=== PATIENT | female | born 1990 | race Caucasian/White ===

== ENCOUNTER 2022-02-17 08:00 | Outpatient (CLI) | payer OTHER ==
--- NOTE | 2022-02-17 16:25 | XRAY Report ---
PROCEDURE: Ankle 3 View LT INDICATIONS: ANKLE ORIF TECHNIQUE: 3 views of the ankle were acquired. COMPARISON: 01/11/2022 and 12/31/2021 FINDINGS: Bones: Postsurgical changes compatible with ORIF of left medial malleolar, posterior malleolus are ag ain left fibular fractures are stable. Anatomic alignment of fracture fragments has been maintained. Soft tissues: No tibiotalar joint effusion. Achilles tendon appears normal. IMPRESSION: Expected postsurgical change from ORIF of left ankle fractures. Reviewed by: Stella Arnold MD, PhD on 02/17/2022 4:24 PM PDT Approved by: Stella Arnold MD, PhD on 02/17/2022 4:24 PM PDT Station ID: [id number]
== END 2022-02-17 23:59 | disposition home or self-care (01) ==
LOC: DI.WOS 08:00
PROVIDERS: ATTEND Physician Assistant
DX: M25.572 Pain in left ankle and joints of left foot (principal)

== ENCOUNTER 2022-07-24 12:02 | Outpatient (CLI) | payer OTHER | END 2022-07-24 12:03 | disposition home or self-care (01) | LOC: LAB.R 12:02 | DX: T81.89XA Other complications of procedures, not elsewhere classified, initial encounter (principal); S82.852S Displaced trimalleolar fracture of left lower leg, sequela | CPT/HCPCS: 87070; 87075; 87186 ==

== ENCOUNTER 2022-07-24 16:57 | Outpatient (CLI) | payer OTHER ==
--- NOTE | 2022-07-24 14:52 | XRAY Report ---
PROCEDURE: Ankle 3 View LT INDICATIONS: LEFT ANKLE ORIF TECHNIQUE: 3 views of the ankle were acquired. COMPARISON: X-ray ankle 08/26/2021 FINDINGS: Bones: Distal fibular as well as medial and posterior malleolar fusion is present. Hardware is intact . There is stable alignment. Arthritic changes are noted at the tibiotalar joint space. Ankle mortise is normally aligned. No suspicious bony lesions. Soft tissues: No tibiotalar joint effusion. Achilles tendon appears normal. 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 Reviewed by: Rosalina Landon MD on 07/24/2022 2:51 PM PST Approved by: Rosalina Landon MD on 07/24/2022 2:51 PM PST Station ID: [id number]
== END 2022-07-24 16:58 | disposition home or self-care (01) ==
LOC: DI.WOS 16:57
PROVIDERS: ATTEND Physician Assistant Surgical
DX: M19.072 Primary osteoarthritis, left ankle and foot (principal)

== ENCOUNTER 2022-11-27 15:22 | Outpatient (CLI) | payer OTHER ==
[2022-11-27 16:14] VITALS: BP 124/68
--- NOTE | 2022-11-27 16:14 | SLEEP CARE CONSULTATION ---
Information from patient questionnaire entered by Madie Gallardo. I have reviewed and concur with the information entered by Madie Gallardo. This document represents the service I personally performed and the decisions made by me, Iram Jacobsen MD, [facility]. History of Present Illness Service Date and Time: 11/27/2022 1522 Reason for Visit: New patient Date of Onset: 3YRS Usual bedtime: 11PM Time it takes to fall asleep: 20MIN Snores at night: Yes Observed to quit breathing while asleep: Yes Sleeps alone due to snoring: Yes Number of times waking at night: 4 Reasons for waking at night: reports: Snoring Toss, Turn, or Twitch while sleeping: Yes Recalls having dreams: Yes Usually gets out of bed at: 630AM Feels refreshed in the morning: No Morning headache: Yes (830AM) Sleepy or fatigued during the day: Yes Ever fallen asleep while driving: No Takes day naps: Yes Dreams during day naps: Yes Prior sleep studies: No Additional HPI information: I have the pleasure of seeing Ms. Campos today regarding the possibility of her having obstructive sleep apnea. As you know, she is a 32-year-old lady who complains of loud snore, and her has seen her quit breathing in her sleep. The patient tells me that she normally goes to bed around 11 pm, and it takes her approximately 20 minutes to fall asleep. Her has to sleep in a separate room because of her snore. She can recall waking up on the average of 4 times during the night. Most of the time she wakes up because of her own snore. She occasionally wakes up choking. There is a lot of tossing and turning in her sleep. She has somniloquy (sleep talking) but not somnambulism (sleep walking). Generally, she can recall having dreams. In the morning she usually gets up out of the bed around 6:30 a.m. not feeling refreshed nor reste d. She usually does have a morning headache that lasts 1 2 hours. During the day she complains of feeling sleepy and fatigued. Her score on [place] Sleepiness Scale is 14 out of 24. She never has fallen asleep while driving nor has had any accident due to sleepiness. She usually takes naps during the day. Upon falling asleep during the day she admits to having vivid dreams. She has never had sleep paralysis. She denies having impaired concentration during the day. 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 Patient is and lives in . Have you smoked in the past 12 months: No Alcohol use: No Caffeine use: Yes Caffeine amount and frequency: CAN COKE DAILY Family History Family history of sleep disordered breathing: Yes Family Hx Sleep Apnea: Mother: Snoring, Sleep apnea - Treated, Father: Snoring, Sleep apnea - Treated, Sibling: Snoring, Sleep apnea - Treated Allergies and Home Medications Known drug allergies: No Drug allergies reviewed: Yes Home medication list reviewed: Yes (Wellbutrin) Review of Systems Cardiovascular: denies: high blood pressure, palpitations, chest pain, irregular heart rate or pulse, leg or foot swelling, have to sleep sitting up, other Respiratory: denies: shortness of breath, wheeze, sputum production, chronic cough, other Gastrointestinal: denies: heartburn, difficulty swallowing, nausea, vomitting, diarrhea, abdominal pain, other Urinary: denies: incontinence, frequency, urgency, impotence, other Neurological: denies: headaches, seizure, head trauma, disorientation, speech dysfunction, gait or balance problems, fainting or unconsciousness, other Psychiatric: reports: depression Ear/Nose/Throat: denies: nasal congestion, sinus problems, nose bleeds, dry mouth/throat, hoarseness, injury to nose, tonsillectomy, wisdom teeth removed, other Endocrine: denies: thyroid disease, history of goiter, sluggishness, too hot or cold, excessive thirst, increased appetite, increased urination, unexplained weakness, other Musculoskeletal: reports: joint pain, back pain, muscle pain or cramping, mobility problems Immunologic: denies: sneezing, rash, itching, allergies to food or environment, other Physical Exam Vital signs obtained and entered by: MADIE Lofton MA Blood Pressure: 124/68 (LEFT ARM) Cuff size: regular Heart Rate: 88 O2 Saturation: 96 Height: 5 ft 4 in Weight: 258 lb 6.4 oz Body Mass Index: 44.3 BMI Classification: Morbidly Obese Neck circumference: 15 Mood/affect: Normal HEENT: No craniofacial malformation Nostrils: partially obstructed (right) Turbinates: normal Septum: midline Mouth and throat: narrow oropharynx Soft palate: long Hard palate: normal Uvula: normal Uvula visualization: 25% Mallampati Class III Tongue: normal in size Tonsils: small Chin and jaw: normal size and position Neck: normal w/o lymphadenopathy or thyromegaly Heart: regular rate and rhythm Lungs: clear bilaterally Extremities: no edema or clubbing Neurologic: intact Impression and Plan IMPRESSION: 1. Obstructive Sleep Apnea-Hypopnea Syndrome, as evident by history of loud and irregular snoring, observed cessation of breath while asleep, frequent awakenings during the night, nocturnal choking, unrefreshed sleep, morning headache, and daytime hypersomnolence. Narrow oropharynx and obesity are common predisposing factors for obstructive sleep apnea-hypopnea syndrome. I recommend proceeding to polysomnography to confirm the diagnosis and to assess severity. If she has significant sleep disordered breathing, a manual CPAP titration study will also be performed to find the optimal treatment pressure. I informed the patient of what the sleep studies involve and after some discussion, she agreed to proceed. Plan: 1. Schedule an in-laboratory polysomnography and return in 1 to 2 weeks after the study to discuss result and initiate therapy. 2. Avoid long distance driving or when feeling sleepy. 3. Avoid alcohol, sedative and muscle relaxant around bedtime. 4. Attempt to lose weight. Counseling Topics: Weight control Follow up with Sleep Care in: 1-2 months Visit Type: In Office Time Spent with Patient (minutes): 15 Provider Statement: I spent 100% of the Face to Face Visit with the patient with greater than 50% spent counseling the patient and coordination of care.
== END 2022-11-27 15:23 | disposition home or self-care (01) ==
LOC: SC 15:22
PROVIDERS: ATTEND Internal Medicine Pulmonary Disease
DX: R06.83 Snoring (principal); G47.8 Other sleep disorders; R06.81 Apnea, not elsewhere classified; G47.50 Parasomnia, unspecified; R51.9 Headache, unspecified; G47.10 Hypersomnia, unspecified; F32.A Depression, unspecified; E66.01 Morbid (severe) obesity due to excess calories; Z68.41 Body mass index [BMI] 40.0-44.9, adult
CPT/HCPCS: 99202; 99212

== ENCOUNTER 2022-11-29 20:44 | Outpatient (CLI) | payer OTHER | END 2022-11-29 20:45 | disposition home or self-care (01) | LOC: SC 20:44 | PROVIDERS: ATTEND Internal Medicine Pulmonary Disease | DX: G47.33 Obstructive sleep apnea (adult) (pediatric) (principal); E66.01 Morbid (severe) obesity due to excess calories; Z68.41 Body mass index [BMI] 40.0-44.9, adult | CPT/HCPCS: 95810 ==

== ENCOUNTER 2023-01-12 09:38 | Outpatient (CLI) | payer OTHER ==
--- NOTE | 2023-01-12 09:35 | SLEEP CARE CONSULTATION ---
Information from patient questionnaire entered by Marsha Gallardo. I have reviewed and concur with the information entered by Marsha Gallardo. This document represents the service I personally performed and the decisions made by , Damaris Lujan ARNP. History of Present Illness Service Date and Time: 01/12/2023 0940 Initial [place] Sleepiness Scale score: 13 (11/27/22) Current [place] Sleepiness Scale score: 17 (01/12/23) Additional HPI information: BRIGITTE VALERO returns via video telehealth visit for follow up and results of the recently performed polysomnography. I explained the pathophysiology behind obstructive sleep apnea. We then spent quite a bit of time discussing different treatment options. For mild obstructive sleep apnea, surgery and oral appliance are alternatives to nasal CPAP therapy but in moderate or severe cases, nasal CPAP is the most effective and reliable treatment. I reviewed the impact of weight changes on sleep apnea and strongly recommended losing weight. After some discussion, the patient opted to go with the nasal CPAP therapy. Nasal autoCPAP set at 4-15 cmH20 will be ordered with rationale explained. A manual titration study will be ordered if unable to find optimal pressure with office adjustments. I explained how CPAP machine works and what to expect when using the machine. Using CPAP every night in order to get used to it was emphasized. Patient advised to put CPAP mask on before getting into bed so as not to fall asleep without CPAP. To assist acclimation to CPAP use, it could also be used for a short time during day while reading or watching TV. The patient was instructed to call the CPAP supplier to discuss any mechanical problem that may occur. If the mask given is uncomfortable or is difficult to keep on through the night even with adjustment, contact the CPAP supplier as many will replace with another mask style if notified before 30 days. If snoring or perceives is not getting enough air or too much air from the machine, notify this office. Patient does not drink alcohol. Patient was cautioned about risks of drowsy driving until sleepiness symptoms resolve. Patient denies drowsy driving. Sleep Study - Results Type of Sleep Study: Polysomnography (COMPLETED 11/29/22) Prior sleep studies: No Polysomnography/Home Sleep Study results: IMPRESSION: The quality of the study is good. The patient had normal sleep efficiency. The sleep architecture was abnormal for sleep fragmentation and reduced amount of time spent in REM sleep. Respiratory monitoring showed mild obstructive sleep apnea-hypopnea (AHI = 13.1) associated with frequent arousals, oxyhemoglobin desaturation and mild hypoxia (candis oxygen saturation of 85%). The respiratory events occurred predominantly during supine sleep (supine AHI = 15.7; non-supine = 9.85). Snore was very loud in intensity. There was no significant periodic leg movement of sleep. Cardiac rhythm was normal sinus rhythm without significant arrhythmia. No abnormal behavior (parasomnia) observed during the night. Allergies and Home Medications Known drug allergies: No Drug allergies reviewed: Yes Home medication list reviewed: Yes (no changes) Review of Systems Review of systems same as previous: Yes (no changes) Physical Exam Vital signs obtained and entered by: MARSHA Lofton MA Blood Pressure: 180/20 (PER PT) Height: 5 ft 4 in (PER PT) Weight: 250 lb (PER PT) Body Mass Index: 42.9 BMI Classification: Morbidly Obese Impression and Plan 1. Obstructive Sleep Apnea-Hypopnea Syndrome, mild, with lowest oxygen saturation of 85%. Obviously this is the cause of the patients symptoms of unrefreshed sleep, and excessive daytime sleepiness. Positive pressure therapy could benefit depression. As mentioned above, the patient will be started on nasal autoCPAP therapy with pressure set at 4-15 cmH2O. A manual titration study will be completed if unable to find optimal treatment pressure with office adjustments. Compliance guidelines also reviewed. A copy of compliance guidelines will be given for reference at check out. Because the apnea is more severe supine, I instructed to avoid sleeping supine using pillow positioning until able to start CPAP use. 2. Hypoxemia, mild, with a candis oxygen saturation of 85% and 1.6 minutes spent under 90%. Her baseline oxygen saturation was normal with an average oxygen saturation of 94%. * Nasal auto CPAP therapy, pressure at 4-15 cm H2O. * Attempt to lose weight. * Avoid alcohol consumption near bedtime. * Avoid supine sleep until using CPAP. * The patient is again cautioned about driving until sleepiness completely resolves. * Return one month after CPAP obtained. I will assess response to therapy and compliance at that time. Counseling Topics: Weight loss health impact Visit Type: Telehealth Video Video Type: [employer] Patient Location: Home Location of Provider: Office Patient agrees and consents to this telehealth visit type: Yes Patient agrees to have their insurance billed: Yes Time Spent with Patient (minutes): 12 Provider Statement: I spent 100% of the Telehealth Video Call with the patient with greater than 50% spent counseling the patient and coordination of care.
[2023-01-12 09:36] VITALS: BP 180/20
== END 2023-01-12 09:39 | disposition home or self-care (01) ==
LOC: SC 09:38
PROVIDERS: ATTEND Nurse Practitioner Family
DX: G47.33 Obstructive sleep apnea (adult) (pediatric) (principal); R09.02 Hypoxemia; E66.01 Morbid (severe) obesity due to excess calories; Z68.41 Body mass index [BMI] 40.0-44.9, adult

== ENCOUNTER 2023-02-28 15:09 | Outpatient (CLI) | payer OTHER ==
--- NOTE | 2023-02-28 10:20 | SLEEP CARE CONSULTATION ---
Information from patient questionnaire entered by Madie Gallardo. I have reviewed and concur with the information entered by Madie Gallardo. This document represents the service I personally performed and the decisions made by , Damaris Lujan ARNP. History of Present Illness Service Date and Time: 02/28/2023 1000 Previous diagnosis: Mild, Obstructive Sleep Apnea-Hypopnea Syndrome AHI: 13.1 (in 11/2022) Reason for follow up: first compliance Equipment type: CPAP (RESMED 11; 01/2023) Equipment obtained from: Other ([facility]; got initial supplies) Mask style: Nasal Mask brand: Respironics (Dreamwear) Backup mask available: No (will keep old mask when replaced) Last cushion change: 1 week Prior sleep studies: No Type of Sleep Study: Polysomnography (COMPLETED 11/29/22) HPI additional information: BRIGITTE VALERO was diagnosed to have mild, AHI 13.1, obstructive sleep apnea- hypopnea syndrome and returns via video telehealth visit today for CPAP therapy first compliance follow-up. Sleep Study - Results Type of Sleep Study: Polysomnography (COMPLETED 11/29/22) Prior sleep studies: No CPAP Compliance Data - Data Reviewed with Patient Average duration of nightly device use: 4 HR 59 MIN Compliance rate %: 80 (01/28/23-02/26/23; 29/30 days used) Current pressure setting (cmH2O): 4-15 (median 9.4, avg 12.8, max 13.8) Average residual AHI: 0.3 Central apnea: 0 Obstructive apnea: 0.2 Average large leak: 0 L/min Subjective Missed days of use due to: reports: other (uncomfortable) Patient concerns: denies: aerophagia, mask discomfort, air blowing in eyes, mask leak noise, condensation in mask/hose, nasal congestion, dry mouth, nose, throat, epistaxis Observed to snore while using device: No Current pressure setting perceived as: comfortable On therapy, patient: reports: sleeping better, awakening more refreshed, being more awake and alert during the day, more rested overall. denies: drowsiness while driving Initial [place] Sleepiness Scale score: 13 (11/27/22) Current [place] Sleepiness Scale score: 13 (02/28/23) Allergies and Home Medications Known drug allergies: No Drug allergies reviewed: Yes Home medication list reviewed: Yes (no changes) Allergy and home medication list: Allergies No Known Drug Allergies Allergy (Verified 02/27/23 13:12) Review of Systems Review of systems same as previous: Yes (no changes) Physical Exam Vital signs obtained and entered by: MADIE Lofton MA Height: 5 ft 4 in (PER PT) Impression and Plan 1. Obstructive Sleep Apnea-Hypopnea Syndrome, mild, with good treatment compliance and good apnea control. On CPAP therapy, the patient has better sleep quality and is more rested overall. Patient has been feeling that the therapy is going well and she is starting to feel an improvement of her sleep and restfulness. She lengthened out the ramp time on her machine and this really seemed to help her adjust to the pressure easier. The patients pressure will be changed to autoCPAP 9-14 cmH20 to reflect pressures being used. Patient advised to contact me if pressure change is uncomfortable so that it can be adjusted. Goals for apnea control discussed. Patient's apnea severity and rationale for treatment to reduce apnea, improve sleep quality and reduce cardiovascular and cerebrovascular events was reviewed. I also reviewed the benefit of consistent device use of CPAP for depression. 2. Overweight, unspecified. Obesity increases the risk of apnea, CPAP pressure requirements and overall health risks especially cardiovascular and diabetes. Thus patient is advised to lose weight. * Change auto CPAP pressure to 9-14 cmH2O * Notify me if snoring with mask or feeling that the pressure is too much or too little * Attempt to lose weight * Call this office if any problems using CPAP * Return for follow up in 1-2 months, or sooner if concerns arise * Counseling Topics: Spare mask, Weight loss health impact Visit Type: Telehealth Video Video Type: [employer] Patient Location: Home Location of Provider: Office Patient agrees and consents to this telehealth visit type: Yes Patient agrees to have their insurance billed: Yes Time Spent with Patient (minutes): 12 Provider Statement: I spent 100% of the Telehealth Video Call with the patient with greater than 50% spent counseling the patient and coordination of care.
== END 2023-02-28 15:10 | disposition home or self-care (01) ==
LOC: SC 15:09
PROVIDERS: ATTEND Nurse Practitioner Family
DX: G47.33 Obstructive sleep apnea (adult) (pediatric) (principal); E66.3 Overweight